=== PATIENT | male | born 1960 | race Caucasian/White ===

== ENCOUNTER 2016-05-10 17:40 | Emergency (ER) | payer SELFPAY ==
[~2016-05-10] VITALS: Ht 175.3 cm; Wt 80.0 kg
[2016-05-10 17:45] VITALS: Ht 175.3 cm; Wt 80.0 kg
[2016-05-10] MEDS ORDERED: NEOM28.34 TP (18:53)
[2016-05-10] MEDS ORDERED: IBUP-1542 PO (18:53)
[2016-05-10] MEDS ORDERED: IBUPROFEN 600 MG TAB PO ONE ×2 (19:00)
[2016-05-10] MEDS ORDERED: DIPHTH/TET/ACEL PERTUSS (ADULT) 0.5 ML VIAL IM* ONE (19:00)
[2016-05-10] MEDS ORDERED: NEOMYC/POLYMYX/BACIT 30 GM OINT TOP ONE (19:00)
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
--- NOTE | 2016-05-10 19:18 | RADRPT ---
PROCEDURE: X-ray lumbar spine. CLINICAL INDICATION: Injury with low back pain. TECHNIQUE: 3 views lumbar spine. COMPARISON: None. FINDINGS: Small superior endplate osteophytes throughout the lumbar spine at the L2-L5 levels. Slight disk sp bimal narrowing at the L3-4 and L4-5 levels. Disk spaces are otherwise substantially preserved. Mild posterior facet degenerative changes at the L3-S1 levels, greater at the L5-S1 level. No acute fra cture or dislocation. Soft tissues unremarkable. IMPRESSION: Mild degenerative changes, without acute fracture. RPTAT: [facility] Physician Priyank Date Time Electronically viewed and signed by Physician Priyank on 05/10/2016 19:18 RS/
--- NOTE | 2016-05-10 19:21 | RADRPT ---
PROCEDURE: CT Head without. CLINICAL INDICATION: Rule out intracranial hemorrhage. TECHNIQUE: The study was performed utilizing a multi-slice, multidetector CT scanner. Direct spira l 1 mm axial sections were obtained through the head without the use of intravenous contrast materia l. 1 or more of the following dose reduction techniques were utilized: Automated exposure control, adjustment of the mA and/or kV according to patient's size, iterative reconstruction technique. Co dagmar and sagittal reformations were obtained. The images were reviewed on a PACS workstation. RADIATION DOSE: CTDIvol: 45.0 mGyDLP: 720.2 mGy-cm COMPARISON: No prior studies are available for comparison. FINDINGS: There is no intracranial hemorrhage, extra-axial fluid collection, midline shift or hydrocephalus. There is a densely calcified lesion arising from the left paramedian aspect of the falx, measuring 1 0 x 8 x 10 mm , with suggestion of dural tail on the coronal view (coronal series image 24). This i s suggestive of a benign meningioma. There is no significant vasogenic edema in the adjacent parame selina left frontal lobe. The ventricles, sulci and cisterns are within normal limits. The white mat ter is unremarkable. The milton-white matter differentiation is preserved. The basal cisterns are pa tent. The midline structures are intact. The orbits, calvarium and extracranial soft tissues are n ormal in appearance. The visualized paranasal sinuses, mastoid air cells and middle ear cavities are normally aerated. IMPRESSION: 1. 10 x 8 x 10 mm left parasagittal meningioma with dense calcifications and mild mass effect on th e adjacent paramedian left frontal lobe. Follow-up MRI may be helpful to confirm stability. 2. Otherwise, no acute intracranial abnormality. No intracranial hemorrhage, extra-axial fluid col lection or hydrocephalous. RPTAT: [facility]AS .Wilfred Harvey MD, Date Time Electronically viewed and signed by .Wilfred Harvey MD, MD on 05/10/2016 19:21 .S/
--- NOTE | 2016-05-10 19:24 | RADRPT ---
PROCEDURE: XR Hand. CLINICAL INDICATION: Injury status post fall. TECHNIQUE: AP oblique and lateral views of the right hand were obtained. COMPARISON: No prior studies are available for comparison. FINDINGS: There is normal mineralization. No acute fracture or dislocation is seen. There are no significant degenerative changes. There is no significant soft tissue swelling. IMPRESSION: No acute fracture. RPTAT: [facility] Physician Priyank Date Time Electronically viewed and signed by Physician Priyank on 05/10/2016 19:23 RS/
[2016-05-10 19:53] VITALS: BP 120/74; PULSE 75; RESP 201; TEMP 98.1
== END 2016-05-10 19:53 | disposition home or self-care (01) ==
LOC: FTE 17:40
DX: S33.5XXA Sprain of ligaments of lumbar spine, initial encounter (principal); S60.511A Abrasion of right hand, initial encounter; S00.03XA Contusion of scalp, initial encounter; D32.9 Benign neoplasm of meninges, unspecified; V00.891A Fall from other pedestrian conveyance, initial encounter; Z23 Encounter for immunization
CPT/HCPCS: 70450; 72100; 90471; 90715

== ENCOUNTER 2016-09-20 12:37 | Emergency (ER) | payer SELFPAY ==
[~2016-09-20] VITALS: Wt 77.0 kg
[~2016-09-20 12:37] MED LIST: IBUP-1542 PO; NEOM28.34 TP
[2016-09-20] MEDS ORDERED: VALA10004 PO (13:17)
[2016-09-20] MEDS ORDERED: IBUP800T25 PO (13:17)
--- NOTE | 2016-09-20 13:41 | ERD ---
ER Documentation Chief Complaint Date/Time DATE: 09/20/16 TIME: 13:31 Chief Complaint RIGHT SIDE FACIAL RASH WITH NO CAUSE. NO SOB NO DRAINAGE. HPI 56-year-old male complaining of right-sided scalp pain and right tooth ache for 1 week. Described pain as sharp and pressure-like. This morning, he noticed rash on the right side of his face, as well as pain in his right ear. He also reports something on the right side of his gum about 2 hours ago. Patient stated that he is under a lot of stress at home recently. Denies fever or chills. Denies nausea or dizziness. History of chickenpox as a child. ROS All systems reviewed and are negative except as per history of present illness. Medications Home Meds Active Scripts Ibuprofen* (Motrin*) 800 Mg Tab, 800 MG PO Q6H Y for PAIN AND OR ELEVATED TEMP, #30 TAB Prov:JOSE PEREIRA. PUBLIC HE[employer] INFORMATICIAN 09/20/16 Valacyclovir HCl (Valtrex) 1,000 Mg Tablet, 1000 MG PO TID for 7 Days, TAB Prov:JOSE PEREIRA. PUBLIC HEALTH INFORMATICIAN 09/20/16 Ibuprofen* (Ibuprofen*) 600 Mg Tablet, 600 MG PO Q8 for PAIN AND/OR INFLAMMATION , #30 TAB Prov:NADEGE CASE MD 05/10/16 Neomycn/Baci Zn/Pmyx Bs/Pramox (NEOSPORIN + PAIN RELIEF OINT) 28.3 Gm Oint...g. , 28.3 GM TP BID for 14 Days, #1 TUB Prov:NADEGE CASE MD 05/10/16 Allergies Allergies: Coded Allergies: No Known Allergy (Unverified , 09/20/16) PMhx/Soc Medical and Surgical Hx: pt denies Medical Hx, pt denies Surgical Hx Hx Alcohol Use: No Hx Substance Use: No Hx Tobacco Use: No Smoking Status: Never smoker Physical Exam Vitals Vital Signs Date Time Temp Pulse Resp B/P Pulse Ox O2 Delivery O2 Flow Rate FiO2 09/20/16 12:43 98.0 63 20 117/74 98 Physical Exam General: Well-developed, well-nourished, conscious and coherent, in no distress Skin: Warm and dry without rash, good texture and turgor. A linear distribution of erythematous papules extends from right parietal scalp down to right zygomatic arch. Head: Normocephalic without evidence of trauma Eyes: Sclera and conjunctivae normal; pupils equal, round, and reactive to light; extraocular movements are intact Ears: Canals are patent, vesicles noted in the right canal. Tympanic membranes are clear Mouth/throat: Mucous membranes are moist. Vesicles in the lingual right upper gum. Posterior pharynx clear without erythema or exudates Neck: Supple without meningismus or adenopathy. Carotids are equal. Trachea midline. No bruits or JVD Chest: Normal AP diameter. Good expansion without retractions. Nontender. Lungs are clear to auscultate bilaterally with good tidal volume Heart: Regular rate and rhythm. No murmur, rub, or gallops heard Extremities: Full range of motion. Good strength bilaterally. No clubbing, cyanosis, or edema. Peripheral pulses are intact. Sensation intact Neuro: Alert and oriented 4, GCS 15. Cranial nerves grossly intact. Motor and sensory exams nonfocal. Moves all extremities. Speech clear. Gait normal Procedures/MDM Well-appearing 56-year-old male presented ED with pain and lesions. He is history exam findings are consistent with herpes zoster. I doubt toxic shock syndrome, streptococcal scalded disease syndrome, toxic epidermal necrolysis, Garcia-Stanton syndrome, [place] spotted fever. I doubt allergic anaphylaxis. Patient appears well, stable for discharge and outpatient management. Medical decision making shared with patient and family. Education provided to patient and family. Patient and family expressed understanding of the plan. Medications on discharge: Valacyclovir, ibuprofen. Follow-up: Primary care provider in 2-3 days or return to ED if worse. Disclaimer: Inadvertent spelling and grammatical errors are likely due to EHR/ dictation software use and do not reflect on the overall quality of patient care. Also, please note that the electronic time recorded on this note does not necessarily reflect the actual time of the patient encounter. Departure Diagnosis: Primary Impression: Herpes zoster Herpes zoster complications: without complications Qualified Code: B02.9 - Herpes zoster without complication Condition: Stable Patient Instructions: Shingles (Herpes Zoster) Referrals: COMMUNITY CLINICS YOU HAVE RECEIVED A MEDICAL SCREENING EXAM AND THE RESULTS INDICATE THAT YOU DO NOT HAVE A CONDITION THAT REQUIRES URGENT TREATMENT IN THE EMERGENCY DEPARTMENT. FURTHER EVALUATION AND TREATMENT OF YOUR CONDITION CAN WAIT UNTIL YOU ARE SEEN IN YOUR DOCTORS OFFICE WITHIN THE NEXT 1-2 DAYS. IT IS YOUR RESPONSIBILITY TO MAKE AN APPOINTMENT FOR FOLOW-UP CARE. IF YOU HAVE A PRIMARY DOCTOR --you should call your primary doctor and schedule an appointment IF YOU DO NOT HAVE A PRIMARY DOCTOR YOU CAN CALL OUR PHYSICIAN REFERRAL HOTLINE AT IF YOU CAN NOT AFFORD TO SEE A PHYSICIAN YOU CAN CHOSE FROM THE FOLLOWING [facility] [address] [facility] [address] [facility] [facility] [address] [facility] [address] [facility]. [facility] [address] [address] [facility]. [address] Additional Instructions: Call your primary care doctor TOMORROW for an appointment during the next 2-3 days.See the doctor sooner or return here if your condition worsens before your appointment time. JOSE PEREIRA NP Sep 20, 2016 13:41
== END 2016-09-20 13:28 | disposition home or self-care (01) ==
LOC: FTE 12:37
DX: B02.9 Zoster without complications (principal)
CPT/HCPCS: 99283